=== PATIENT | male | born 1955 | race Caucasian/White ===

== ENCOUNTER → 2017-05-26 | Outpatient (CLI) | payer OTHER ==
[2017-05-26 09:53] LABS: ALT/SGPT 33 U/L (12-78); AST/SGOT 20 U/L (15-37); BLOOD UREA NITROGEN 14 mg/dl (7-18); BUN/CREATININE RATIO 15.6 (10-20); CALCIUM 8.9 mg/dl (8.5-10.1); CARBON DIOXIDE 28 mmol/L (21-32); CHLORIDE 105 mmol/L (98-107); CREATININE 0.91 mg/dl (0.60-1.40); GLUCOSE 88 mg/dl (70-99); POTASSIUM 4.3 mmol/L (3.5-5.1); SODIUM 137 mmol/L (136-145)
[2017-05-26 09:57] LABS: CHOLESTEROL 171 mg/dl (0-200); CHOLESTEROL/HDL RATIO 3.2; HDL CHOLESTEROL 53 mg/dl; LDL CHOLESTEROL CALCULATED 88 mg/dl; TRIGLYCERIDES 149 mg/dl (0-150); VERY LOW DENSITY LIPOPROT CALC 30 mg/dl
== END | disposition home or self-care (01) ==
LOC: C.LAB1850 07:18
PROVIDERS: ATTEND Internal Medicine
DX: E78.5 Hyperlipidemia, unspecified (principal); Z80.42 Family history of malignant neoplasm of prostate

== ENCOUNTER → 2017-08-31 | Outpatient (CLI) | payer OTHER ==
[~2017-08-31] VITALS: Ht 190.5 cm; Wt 98.1 kg
[2017-08-31 15:55] VITALS: BP 139/82; PULSE 59; Ht 190.5 cm; Wt 98.1 kg
== END | disposition home or self-care (01) ==
LOC: C.NEUR 14:45
PROVIDERS: ATTEND Internal Medicine Pulmonary Disease
DX: G47.33 Obstructive sleep apnea (adult) (pediatric) (principal)

== ENCOUNTER → 2017-09-26 | Outpatient (CLI) | payer OTHER | END | disposition home or self-care (01) | LOC: C.NEUR 08:19 | PROVIDERS: ATTEND Internal Medicine Pulmonary Disease | DX: G47.33 Obstructive sleep apnea (adult) (pediatric) (principal) ==